=== PATIENT | female | born 1995 | race Caucasian/White ===

== ENCOUNTER 2017-02-21 13:29 | Inpatient (IN) | payer OTHER ==
[~2017-02-21] VITALS: Ht 162.6 cm; Wt 97.0 kg
[~2017-02-21 13:29] MED LIST: AMITRIPTYLINE H10 MG PO; AVENTYL,PAMELOR10 MG PO; KEFLEX500 MG PO; LAMOTRIGINE100 MG PO; LIDOCAINE20 MG/1 M5 MM; OMEPRAZOLE20 MG PO; PRAZOSIN HCL2 MG PO; PRILOSEC20 MG PO; TOPIRAMATE50 MG PO; TRINESSA1 EACH PO; ZOLOFT50 MG PO
[2017-02-21 14:20] LABS: HEMATOCRIT 38.9 % (36.0-46.0); MCHC 31.6 G/DL (30.0-36.0); MCV 85.5 FL (83-99); MEAN PLAT.VOLUME 9.1 uM^3 (9.5-12.4); PLATELET COUNT 334 K/uL (156-360); RBC DIS.WIDTH-CV 14.6 % (11.8-14.6); RBC DIS.WIDTH-SD 44.3 % (39-53); RED BLOOD COUNT 4.55 M/uL (3.80-5.20); WHITE BLOOD COUNT 9.2 K/uL (4.1-10.2)
[2017-02-21 14:24] LABS: AMPHETAMINE NEGATIVE (500 ng/mL); BARBITURATES NEGATIVE (200 ng/mL); BENZODIAZEPINES NEGATIVE (150 ng/mL); COCAINE NEGATIVE (150 ng/mL); INTERNAL CONTROLS VALID? YES; METHADONE NEGATIVE (200 ng/mL); METHAMPHETAMINE NEGATIVE (500 ng/mL); OPIATES (MORPHINE) NEGATIVE (100 ng/mL); OXYCODONE NEGATIVE (100 ng/mL); PHENCYCLIDINE NEGATIVE (25 ng/mL); PROPOXYPHENE NEGATIVE (300 ng/mL); THC CANNABINOIDS PRESUMPTIVE POSITIVE (50 ng/mL); TRICYCLIC ANTIDEPRESSANTS NEGATIVE (300 ng/mL)
[2017-02-21 14:25] LABS: ADD MEDTOX COMMENT Y
[2017-02-21 14:30] LABS: CHLORIDE 106 mEq/L (99-109); SODIUM 139 mEq/L (136-147)
[2017-02-21 14:32] LABS: GLUCOSE 103 mg/dL (70-99)
[2017-02-21 14:33] LABS: ANION GAP 10 MEQ/L (2-14)
[2017-02-21 14:35] LABS: SERUM ETHYL ALCOHOL < 10 mg/dL
[2017-02-21 14:36] LABS: GFR ESTIMATE (CALCULATED) > 59 mL/min/; UREA NITROGEN (BUN) 7 mg/dL (9-23)
[2017-02-21] MEDS ORDERED: LAMOTRIGINE25 MG PO (17:10)
[2017-02-21] MEDS ORDERED: ATARAX,VISTARIL25 MG PO (17:12)
[2017-02-21] MEDS ORDERED: VENLAFAXINE HCL75 M3 PO (17:12)
[2017-02-21 21:43] VITALS: BP 136/84
[2017-02-21 23:28] VITALS: BP 136/84
[2017-02-22 07:55] VITALS: BP 111/61
[2017-02-22 15:35] VITALS: BP 114/66
[2017-02-23 07:43] VITALS: BP 122/63
[2017-02-23] MEDS ORDERED: LITHIUM CARBON300 M2 PO (09:36)
== END 2017-02-23 12:45 | disposition home or self-care (01) | DRG 885 ==
LOC: EME 13:29 → EDOF 19:18 → 1WEST 19:18
DX: F33.9 Major depressive disorder, recurrent, unspecified (principal); R45.851 Suicidal ideations; K21.9 Gastro-esophageal reflux disease without esophagitis; G89.29 Other chronic pain; E55.9 Vitamin D deficiency, unspecified; F41.9 Anxiety disorder, unspecified; F43.10 Post-traumatic stress disorder, unspecified; F17.210 Nicotine dependence, cigarettes, uncomplicated; F12.90 Cannabis use, unspecified, uncomplicated; Z91.5 Personal history of self-harm; Z79.3 Long term (current) use of hormonal contraceptives; Z81.8 Family history of other mental and behavioral disorders
CPT/HCPCS: 36415; 80048; 80053; 80061; 82248; 83036; 84443; 84702; 84999; 85027; 90839; 99281; 99285; G0480; Q0177

== ENCOUNTER 2017-03-20 14:40 | Inpatient (IN) | payer OTHER ==
[~2017-03-20] VITALS: Ht 162.6 cm; Wt 96.8 kg
[~2017-03-20 14:40] MED LIST changes: +ATARAX,VISTARIL25 MG PO; +LAMOTRIGINE25 MG PO; +LITHIUM CARBON300 M2 PO; +VENLAFAXINE HCL75 M3 PO
[2017-03-20] MEDS ORDERED: LITHIUM CARBON300 M1 PO (17:08)
[2017-03-20] MEDS ORDERED: LITHIUM CARBON450 MG PO (17:09)
[2017-03-20] MEDS ORDERED: ATARAX,VISTARIL25 MG PO (17:09)
[2017-03-20] MEDS ORDERED: EPIPEN ADU0.3 MG/0.3 IM (17:09)
[2017-03-20] MEDS ORDERED: ELAVIL10 MG PO (17:10)
[2017-03-20] MEDS ORDERED: NICORELIEF2 MG BC (17:10)
[2017-03-20 17:16] LABS: AMPHETAMINE NEGATIVE (500 ng/mL); BARBITURATES NEGATIVE (200 ng/mL); BENZODIAZEPINES NEGATIVE (150 ng/mL); COCAINE NEGATIVE (150 ng/mL); INTERNAL CONTROLS VALID? YES; METHADONE NEGATIVE (200 ng/mL); METHAMPHETAMINE NEGATIVE (500 ng/mL); OPIATES (MORPHINE) NEGATIVE (100 ng/mL); OXYCODONE NEGATIVE (100 ng/mL); PHENCYCLIDINE NEGATIVE (25 ng/mL); PROPOXYPHENE NEGATIVE (300 ng/mL); THC CANNABINOIDS NEGATIVE (50 ng/mL); TRICYCLIC ANTIDEPRESSANTS PRESUMPTIVE POSITIVE (300 ng/mL)
[2017-03-20 18:24] VITALS: BP 111/71
[2017-03-20 18:30] VITALS: BP 111/71
[2017-03-21 07:44] VITALS: BP 121/56
[2017-03-21 15:00] VITALS: BP 108/65
[2017-03-22 07:35] VITALS: BP 111/71
[2017-03-22 15:07] VITALS: BP 108/66
[2017-03-23 07:43] VITALS: BP 115/55
[2017-03-23 15:04] VITALS: BP 119/64
[2017-03-24 07:17] VITALS: BP 116/55
[2017-03-24] MEDS ORDERED: LITHIUM CARBON300 M2 PO (08:59)
[2017-03-24] MEDS ORDERED: BUSPAR10 MG PO (09:23)
== END 2017-03-24 09:59 | disposition home or self-care (01) | DRG 885 ==
LOC: EME 14:40 → EDOF 16:04 → 1WEST 16:04
PROVIDERS: Emergency Medicine
DX: F33.1 Major depressive disorder, recurrent, moderate (principal); F60.3 Borderline personality disorder; F12.10 Cannabis abuse, uncomplicated; Z91.5 Personal history of self-harm; R45.851 Suicidal ideations; G43.909 Migraine, unspecified, not intractable, without status migrainosus; K21.9 Gastro-esophageal reflux disease without esophagitis
CPT/HCPCS: 36415; 80178; 84439; 84443; 84702; 90839; 97165 GO; 99281; 99285

== ENCOUNTER 2017-04-06 15:51 | Emergency (ER) | payer OTHER ==
[~2017-04-06] VITALS: Ht 162.6 cm; Wt 98.9 kg
[~2017-04-06 15:51] MED LIST changes: +BUSPAR10 MG PO; +ELAVIL10 MG PO; +EPIPEN ADU0.3 MG/0.3 IM; +LITHIUM CARBON300 M1 PO; +LITHIUM CARBON450 MG PO; +NICORELIEF2 MG BC
[2017-04-06 17:41] VITALS: BP 135/96
== END 2017-04-06 17:43 | disposition home or self-care (01) ==
LOC: EME 15:51
DX: R45.851 Suicidal ideations (principal); F33.1 Major depressive disorder, recurrent, moderate; F60.9 Personality disorder, unspecified; Z63.79 Other stressful life events affecting family and household; K21.9 Gastro-esophageal reflux disease without esophagitis; F17.200 Nicotine dependence, unspecified, uncomplicated
CPT/HCPCS: 90837; 99281; 99285

== ENCOUNTER 2017-05-06 19:40 | Inpatient (IN) | payer OTHER ==
[~2017-05-06] VITALS: Ht 162.6 cm; Wt 98.7 kg
[2017-05-06 20:37] LABS: AMPHETAMINE NEGATIVE (500 ng/mL); BARBITURATES NEGATIVE (200 ng/mL); BENZODIAZEPINES NEGATIVE (150 ng/mL); COCAINE NEGATIVE (150 ng/mL); INTERNAL CONTROLS VALID? YES; METHADONE NEGATIVE (200 ng/mL); METHAMPHETAMINE NEGATIVE (500 ng/mL); OPIATES (MORPHINE) NEGATIVE (100 ng/mL); OXYCODONE NEGATIVE (100 ng/mL); PHENCYCLIDINE NEGATIVE (25 ng/mL); PROPOXYPHENE NEGATIVE (300 ng/mL); THC CANNABINOIDS NEGATIVE (50 ng/mL); TRICYCLIC ANTIDEPRESSANTS PRESUMPTIVE POSITIVE (300 ng/mL)
[2017-05-06 21:08] LABS: HEMATOCRIT 40.3 % (36.0-46.0); MCH 26.6 PG (29.0-34.0); MCHC 31.5 G/DL (30.0-36.0); MCV 84.5 FL (83-99); PLATELET COUNT 366 K/uL (156-360); RBC DIS.WIDTH-CV 13.8 % (11.8-14.6); RBC DIS.WIDTH-SD 43.2 % (39-53); RED BLOOD COUNT 4.77 M/uL (3.80-5.20); WHITE BLOOD COUNT 10.3 K/uL (4.1-10.2)
[2017-05-06 21:20] LABS: CHLORIDE 107 mEq/L (99-109); POTASSIUM 3.8 mEq/L (3.7-5.4); SODIUM 140 mEq/L (136-147)
[2017-05-06 21:22] LABS: GLUCOSE 100 mg/dL (70-99)
[2017-05-06 21:23] LABS: ANION GAP 10 MEQ/L (2-14)
[2017-05-06 21:25] LABS: SERUM ETHYL ALCOHOL < 10 mg/dL
[2017-05-06 21:26] LABS: GFR ESTIMATE (CALCULATED) > 59 mL/min/; UREA NITROGEN (BUN) 9 mg/dL (9-23)
[2017-05-06 21:35] LABS: QUANTITATIVE HCG < 4.0 MIU/ML
[2017-05-07 01:22] VITALS: BP 114/75
[2017-05-07 07:16] VITALS: BP 110/53
[2017-05-07 15:23] VITALS: BP 123/74
[2017-05-08 07:26] VITALS: BP 95/51
[2017-05-08 16:01] VITALS: BP 111/63
[2017-05-09 07:45] VITALS: BP 99/52
[2017-05-09] MEDS ORDERED: ELAVIL10 MG PO (10:02)
[2017-05-09] MEDS ORDERED: PRAZOSIN HCL2 MG PO (10:02)
[2017-05-09] MEDS ORDERED: LITHIUM CARBON300 M1 PO (10:02)
[2017-05-09] MEDS ORDERED: PRILOSEC20 MG PO (10:02)
[2017-05-09] MEDS ORDERED: LITHIUM CARBON300 M2 PO (10:02)
== END 2017-05-09 11:53 | disposition home or self-care (01) | DRG 885 ==
LOC: EME 19:40 → EDOF 23:45 → 1WEST 05-07 01:02
DX: F33.1 Major depressive disorder, recurrent, moderate (principal); F17.200 Nicotine dependence, unspecified, uncomplicated; R45.851 Suicidal ideations; Z81.8 Family history of other mental and behavioral disorders; K21.9 Gastro-esophageal reflux disease without esophagitis; F60.9 Personality disorder, unspecified; Z91.030 Bee allergy status
CPT/HCPCS: 80048; 80178; 84702; 85027; 90839; 99281; 99285; G0480

== ENCOUNTER 2018-04-23 19:23 | Emergency (ER) | payer OTHER ==
[~2018-04-23] VITALS: Ht 162.6 cm; Wt 99.9 kg
[2018-04-23 19:32] VITALS: BP 100/87
== END 2018-04-23 19:50 | disposition left against medical advice (07) ==
LOC: EME 19:23
DX: R45.851 Suicidal ideations (principal); Z53.21 Procedure and treatment not carried out due to patient leaving prior to being seen by health care provider
CPT/HCPCS: 80048; 80178; 84702; 85025; 99281; 99283; G0480